=== PATIENT | female | born 1955 | race Caucasian/White ===

== ENCOUNTER 2016-03-30 15:44 | Observation (INO) | payer BC ==
[~2016-03-30] VITALS: Ht 160 cm; Wt 71.7 kg
[2016-03-30 16:15] LABS: BASO % 0.6 % (0.0-2.0); EOS # 0.1 (0.0-0.7); EOS % 1.1 % (0-4.0); GRAN # 3.7 (1.4-6.5); GRAN % 60.3 % (42.2-75.2); HEMATOCRIT 39.5 % (37.0-47.0); HEMOGLOBIN 13.7 g/dl (12.5-16.0); LYMPH # 1.9 (1.2-3.4); LYMPH % 29.9 % (20.0-51.0); MEAN CELL VOLUME 90 fl (80.0-100.0); MEAN CORPUSCULAR HEMOGLOBIN 31 pg (27.0-31.0); MEAN CORPUSCULAR HGB CONC 35 g/dl (33.0-37.0); MEAN PLATELET VOLUME 9.5 fl (7.4-10.4); MONO # 0.5 (0.1-0.6); MONO % 7.9 % (1.7-9.3); PLATELET COUNT 170 K/mm3 (130-400); RED BLOOD COUNT 4.38 M/mm3 (4.10-5.30); REDCELL DISTRIBUTION WIDTH-CV 11.8 % (11.5-14.5); WHITE BLOOD COUNT 6.2 K/mm3 (4.8-10.8)
[2016-03-30 16:32] LABS: ADJUSTED CALCIUM 9.6 mg/dL (8.4-10.2); ALANINE AMINOTRANSFERASE 46 U/L (9-52); ALBUMIN 4.3 gm/dL (3.5-5.0); ALKALINE PHOSPHATASE 91 U/L (50-136); ANION GAP 13 mmol/L (7-16); BILIRUBIN,TOTAL 0.9 mg/dL (0.0-1.0); BLOOD UREA NITROGEN 17 mg/dL (7-17); C-REACTIVE PROTEIN 0.6 mg/dL (0.0-0.9); CALCIUM 9.8 mg/dL (8.4-10.2); CARBON DIOXIDE 25 mmol/L (22-30); CHLORIDE 105 mmol/L (98-107); CREATININE, serum 0.71 mg/dL (0.52-1.25); GLUCOSE 121 mg/dL (74-106); POTASSIUM 3.6 mmol/L (3.4-5.0); SODIUM 143 mmol/L (137-145); TOTAL PROTEIN 7.6 gm/dL (6.4-8.2)
[2016-03-30 16:41] LABS: TROPONIN-I < 0.012 ng/mL (0.000-0.034)
[2016-03-30] MEDS ORDERED: ATIVAN 0.50.5 MG/TAB PO (18:43)
[2016-03-30] MEDS ORDERED: ZOFRAN ODT4 MG PO (18:43)
[2016-03-30 21:45] VITALS: BP 129/77; PULSE 75; TEMP 98.1
[2016-03-30 23:37] VITALS: BP 127/78; PULSE 72; TEMP 98.1
[2016-03-31 03:52] LABS: PH 5 (5-8); SQUAMOUS EPITHELIAL 0-2 /hpf; URINE APPEARANCE Clear; URINE BACTERIA None Seen /hpf; URINE BILIRUBIN Negative (NEGATIVE); URINE BLOOD Negative (NEGATIVE); URINE COLOR Yellow; URINE GLUCOSE Negative (NEGATIVE); URINE KETONE Negative (NEGATIVE); URINE RBC 0-2 /hpf; URINE UROBILINOGEN Negative (NEGATIVE); URINE WBC 0-2 /hpf
[2016-03-31 03:55] VITALS: BP 136/73; PULSE 75; TEMP 97.6
[2016-03-31 08:27] VITALS: BP 134/66; PULSE 76; TEMP 98.5
[2016-03-31] MEDS ORDERED: VALIUM 5MG T5 MG/TAB PO (11:39)
[2016-03-31] MEDS ORDERED: ZOFRAN ODT8 MG PO (11:40)
[2016-03-31 11:49] VITALS: BP 147/80; PULSE 75; TEMP 97.8
[2016-03-31 17:04] VITALS: BP 134/81; PULSE 81; TEMP 98.1
[2016-03-31 19:31] VITALS: BP 133/70; PULSE 74; TEMP 98
[2016-03-31 22:59] VITALS: BP 137/94; PULSE 73; TEMP 97.3
[2016-04-01 04:11] VITALS: BP 145/80; PULSE 81; TEMP 98.2
[2016-04-01 07:40] VITALS: BP 147/76; PULSE 68; TEMP 97.6
[2016-04-01 11:04] VITALS: BP 135/78; PULSE 122; TEMP 99
== END 2016-04-01 12:07 | disposition home or self-care (01) ==
LOC: COL.ER 15:44 → MEDICAL 20:20
PROVIDERS: Emergency Medicine; Nurse Practitioner Family
DX: R42 Dizziness and giddiness (principal); R51 Headache
CPT/HCPCS: A9585; G0378; J2060; J2405; J2550; J3360; J7030

== ENCOUNTER → 2017-09-04 | Outpatient (CLI) | payer BC ==
[~2017-09-04] MED LIST: ATIVAN 0.50.5 MG/TAB PO; VALIUM 5MG T5 MG/TAB PO; ZOFRAN ODT4 MG PO; ZOFRAN ODT8 MG PO
== END ==
LOC: MC.RAD 08:50
DX: Z12.31 Encounter for screening mammogram for malignant neoplasm of breast (principal)

== ENCOUNTER → 2019-11-17 | Outpatient (CLI) | payer BC | LOC: MC.RAD 09:19 | DX: Z12.31 Encounter for screening mammogram for malignant neoplasm of breast (principal) ==

== ENCOUNTER → 2021-08-10 | Outpatient (CLI) | payer BC, MEDICARE | LOC: MC.RAD 07-12 14:45 | DX: Z12.31 Encounter for screening mammogram for malignant neoplasm of breast (principal) ==

== ENCOUNTER → 2024-03-03 | Outpatient (CLI) | payer BC, MEDICARE | LOC: MC.RAD 06:59 | DX: Z12.31 Encounter for screening mammogram for malignant neoplasm of breast (principal) ==